=== PATIENT | female | born 1960 | race Caucasian/White ===

== ENCOUNTER 2021-04-17 08:59 | Emergency (ER) | payer OTHER ==
[~2021-04-17] VITALS: Ht 154.9 cm; Wt 85.5 kg
[~2021-04-17 08:59] MED LIST: ALLOPURINOL100 MG PO; AMLODIPINE BESYL5 MG PO; ATORVASTATIN CA10 MG PO; CLARITIN10 MG PO; COZAAR100 MG PO; FLUOXETINE HCL20 MG PO; IRON 100 PLUS1 EACH PO; LISINOPRIL-HCT1 EACH PO; MULTI VITAMIN1 EACH PO; NORCO 5-325 TA1 EACH PO; VITAMIN A AND1 EACH PO
[2021-04-17] MEDS ORDERED: TORSEMIDE20 MG PO (09:20)
[2021-04-17] MEDS ORDERED: CINACALCET HCL30 MG PO (09:21)
--- OUTSIDE RECORDS SUMMARY | 2021-04-17 11:00 | XMS ---
PreManage Notification: GEETA LONDON Security Camera Repairman Events No recent Security Events currently on file CRITERIA MET - [facility] - 3 Facilities in [address] [facility] - 2 Visits in 30 Days CARE PROVIDERS There are no care providers on record at this time. Larry has no Care Guidelines for this patient. Axel VISIT COUNT (12 MO.) 1 [facility] 1 [facility] 1 [facility] TOTAL 3 NOTE: Visits indicate total known visits. ED/[facility] VISIT TRACKING (12 MO.) 04/17/2021 09:00 [facility] [place] TYPE: Emergency COMPLAINT: - SOB/NAUSEA KIDNEY FAILURE 03/25/2021 14:11 [facility] [place] TYPE: Emergency DIAGNOSES: - Nausea - Chronic kidney disease, stage 4 (severe) - Abnormal Lab 03/14/2021 10:00 [facility] [place] TYPE: Emergency DIAGNOSES: - Pneumonia, unspecified organism - Shortness of Breath INPATIENT VISIT TRACKING (12 MO.) [facility] [place] [facility] DIAGNOSES: - Nausea - Acute kidney failure, unspecified - Anemia in chronic kidney disease - Hyperkalemia - Chronic kidney disease, stage 4 (severe) - Essential (primary) hypertension - Hyperlipidemia, unspecified - Chronic systolic (congestive) heart failure - 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
[2021-04-17] MEDS ORDERED: ONDANSETRON ODT8 MG PO (12:24)
--- NOTE | 2021-04-17 21:09 | EKG ---
[facility] [address] [place], [place] [address] Signed Sinus tachycardia Left axis deviation Left bundle branch block Abnormal ECG No previous ECGs available Confirmed by ANH MCBRIDE DO ([id number]) on 04/17/2021 9:09:47 PM Electronically Signed By: ANH MCBRIDE DO 04/17/212108 PATIENT NAME: GEETA LONDON RAFAEL Electrocardiogram DATE OF : 56 PHYSICIAN: ANH MCBRIDE DO REPORT #: [id number] REPORT IS CONFIDENTIAL AND NOT TO BE RELEASED WITHOUT AUTHORIZATION
== END 2021-04-17 12:42 | disposition home or self-care (01) ==
LOC: ED 08:59
DX: I13.0 Hypertensive heart and chronic kidney disease with heart failure and stage 1 through stage 4 chronic kidney disease, or unspecified chronic kidney disease (principal); N18.9 Chronic kidney disease, unspecified; I50.9 Heart failure, unspecified; E87.2 Acidosis; J45.909 Unspecified asthma, uncomplicated; Z88.2 Allergy status to sulfonamides; Z79.899 Other long term (current) drug therapy
CPT/HCPCS: 71045; 80053; 83880; 84484; 85025; 93005; 93010; 99285-25

== ENCOUNTER 2021-08-31 07:31 | Emergency (ER) | payer OTHER ==
[~2021-08-31] VITALS: Ht 154.9 cm; Wt 86.7 kg
[~2021-08-31 07:31] MED LIST changes: +CINACALCET HCL30 MG PO; +ONDANSETRON ODT8 MG PO; +TORSEMIDE20 MG PO
[2021-08-31] MEDS ORDERED: VITAMIN D3125 MC1 PO (07:47)
[2021-08-31] MEDS ORDERED: SODIUM BICARBO650 MG PO (07:47)
[2021-08-31] MEDS ORDERED: CARVEDILOL6.25 MG PO (07:48)
[2021-08-31] MEDS ORDERED: ISOSORBIDE DINI20 MG PO (07:48)
[2021-08-31] MEDS ORDERED: CIPRO250 MG PO (10:42)
== END 2021-08-31 11:21 | disposition home or self-care (01) ==
LOC: ED 07:31
DX: N39.0 Urinary tract infection, site not specified (principal); I10 Essential (primary) hypertension; J45.909 Unspecified asthma, uncomplicated; Z88.2 Allergy status to sulfonamides; Z79.899 Other long term (current) drug therapy
CPT/HCPCS: 51701; 81001; 87088; 87186; 99283; J0696

== ENCOUNTER 2023-10-02 17:16 | Emergency (ER) | payer MEDICARE, OTHER ==
[~2023-10-02] VITALS: Ht 154.9 cm; Wt 84.3 kg
[~2023-10-02 17:16] MED LIST changes: +CARVEDILOL6.25 MG PO; +CEFDINIR300 MG PO; +CINACALCET HCL60 MG PO; +CIPRO250 MG PO; +GLUCOSAMINE1000 MG PO; +HYDRALAZINE HC100 MG PO; +ISOSORBIDE DINI20 MG PO; +LOSARTAN POTASS50 MG PO; +NIFEDIPINE ER30 M1 PO; +OMEPRAZOLE20 MG PO; +RENVELA800 MG PO; +SODIUM BICARBO650 MG PO; +VITAMIN D3125 MC1 PO
[2023-10-02] MEDS ORDERED: PREDNISONE5 MG PO (17:37)
[2023-10-02] MEDS ORDERED: TACROLIMUS1 MG PO (17:41)
[2023-10-02] MEDS ORDERED: ASPIRIN81 MG PO (17:42)
[2023-10-02] MEDS ORDERED: NITROFURANTOIN100 M1 PO (17:46)
[2023-10-02 17:59] LABS: BASOPHILS 1.3 % (0-2); EOSINOPHILS 0.7 % (0-6); HEMATOCRIT 32.5 % (35.0-50.0); HEMOGLOBIN 10.5 g/dL (12.0-18.0); MCH 29.2 (27-36); MCHC 32.2 g/dl (30-36); MCV 90.7 fl (81-99); MONOCYTES 8.6 % (0-12); NEUTROPHILS 84.4 % (39-80); PLATELET COUNT 205 K/uL (140-440); RBC 3.59 M/ul (4.3-5.7); RDW 14.9 (10.5-15.0)
[2023-10-02 18:08] LABS: ALBUMIN 3.6 g/dL (3.4-5.0); ALBUMIN/GLOBULIN RATIO 1.24 (1.1-2.4); ANION GAP 14.9 (7-21); BILIRUBIN, TOTAL 0.4 ng/dL (0.2-1.0); BUN/CREATININE RATIO 15.46 (6.0-28.6); CALCIUM 10.1 mg/dL (8.5-10.1); CREATININE, SERUM 1.81 mg/dL (0.55-1.02); POTASSIUM 4.9 mmol/L (3.5-5.1); PROTEIN, TOTAL 6.5 g/dL (6.4-8.2)
[2023-10-02 18:30] LABS: LACTIC ACID, BLOOD 0.8 mmol/L (0.4-2.0)
[2023-10-02 18:44] LABS: BILIRUBIN, URINE NEGATIVE (negative); BLOOD/HGB, URINE NEGATIVE (Negative); KETONE, URINE NEGATIVE (Negative); LEUK ESTERASE, URINE NEGATIVE (negative); NITRITE, URINE NEGATIVE (negative); PH, URINE 5.5 (5-7)
[2023-10-02 18:46] LABS: INFLUENZA B NAA NEGATIVE (NEGATIVE); RESPIRATORY SYNCYTIAL VIR NAA NEGATIVE (NEGATIVE)
[2023-10-02 18:53] LABS: BACTERIA, URINE NONE SEEN /hpf (negative); CASTS, URINE GRANULAR 1+ \\lpf; COLLECTION TYPE, URINE CLEAN CATCH; CRYSTALS, URINE NONE SEEN (0-1+); EPITHELIAL CELLS, URINE NONE SEEN /lpf (0-1+); RED BLOOD CELLS, URINE 0-1 /hpf (0-5); REFLEX CULTURE, URINE No (No)
[2023-10-03 00:26] VITALS: BP 139/89
== END 2023-10-02 23:50 | disposition short-term general hospital (02) ==
LOC: ED 17:16
PROVIDERS: Emergency Medicine
DX: K52.9 Noninfective gastroenteritis and colitis, unspecified (principal); I10 Essential (primary) hypertension; Z94.0 Kidney transplant status; J45.909 Unspecified asthma, uncomplicated; Z88.2 Allergy status to sulfonamides; Z79.52 Long term (current) use of systemic steroids; Z79.621 Long term (current) use of calcineurin inhibitor; Z79.82 Long term (current) use of aspirin; D72.829 Elevated white blood cell count, unspecified
CPT/HCPCS: 36415; 71045; 74176; 80053; 81001; 83605; 85025; 87502; J0696; J3370; J7030; J7060; U0002

== ENCOUNTER 2025-06-22 10:52 | Day surgery (SDC) | payer MEDICARE, OTHER ==
[~2025-06-22] VITALS: Ht 152.4 cm; Wt 86.0 kg
[~2025-06-22 10:52] MED LIST changes: +ACETAMINOPHEN500 MG PO; +ASPIRIN81 MG PO; +CEFAZOLIN SODIUM 2 GM/20 ML SYR IV SCH; +CEFUROXIME250 MG PO; +COZAAR25 MG PO; +GABAPENTIN300 MG PO; +HYDROMORPHONE HC2 MG PO; +IBLOOD GLUCOSE TEST STRIP 1 EA TEST VI PRN; +LACTATED RINGER'S 1,000 ML IV SCH; +LIDOCAINE HCL 1% 5 ML SDV INJ ONE; +NITROFURANTOIN100 M1 PO; +NORVASC2.5 MG PO; +PREDNISONE5 MG PO; +SENNA LAX8.6 MG PO; +TACROLIMUS1 MG PO; +XARELTO10 MG PO
[2025-06-22 11:10] VITALS: BP 167/88
[2025-06-22] MEDS ORDERED: CLINDAMYCIN HC300 MG PO (11:20)
[2025-06-22] MEDS ORDERED: LIDOCAINE HCL 2% 20 MG/ML VIAL INJ ONE (12:13)
[2025-06-22] MEDS ORDERED: Ropivacaine HCl 0.5% 30 ML VIAL ONE (12:13)
[2025-06-22] MEDS ORDERED: DEXAMETHASONE SOD PHOS 10 MG/ML VIAL ONE (12:16)
[2025-06-22] MEDS ORDERED: HYDROCODONE/ACETA 7.5/325 TAB PO PRN (13:00)
[2025-06-22] MEDS ORDERED: fentaNYL citrate 100 MCG/2 ML VIAL ONE (13:29)
[2025-06-22] MEDS ORDERED: METOCLOPRAMIDE HCL 10 MG/2 ML SDV IV PRN (13:45)
[2025-06-22] MEDS ORDERED: fentaNYL citrate 50 MCG/ML SDV IV PRN (13:45)
[2025-06-22] MEDS ORDERED: IBLOOD GLUCOSE TEST STRIP 1 EA TEST VI PRN (13:45)
[2025-06-22] MEDS ORDERED: HYDROmorphone HCL 1 MG/ML SYR IV PRN (13:45)
[2025-06-22] MEDS ORDERED: NALOXONE HCL 0.4 MG SYR IV PRN (13:45)
--- NOTE | 2025-06-22 14:26 | NUR ---
06/22/25 1426 Juli Stroud PATIENT FOLLOWS INSTRUCTIONS TO LIFT HER HEAD OFF PILLOW. SURGICAL BONNET AND OXYGEN MASK ARE REMOVED.
[2025-06-22 14:57] VITALS: BP 152/118
--- NOTE | 2025-06-29 08:03 | OR ---
[facility] [address] [place], [place] [address] Signed DATE OF OPERATION: 06/22/2025 SURGEON: Galileo Johns MD PREOPERATIVE DIAGNOSIS: Distal radius fracture right. POSTOPERATIVE DIAGNOSIS: Distal radius fracture right. PROCEDURE PERFORMED: Open reduction and internal fixation right distal radius. GLASS CLEANING MACHINE TENDER: None. ANESTHESIA: General. BLOOD LOSS: None. TOURNIQUET TIME: 34 minutes. IMPLANTS: Trav DVR plate with seven screws. BRIEF HISTORY: Diamond is a 64-year-old female, who suffered a ground level fall with significant displacement. The risks, benefits, and alternatives of surgery were discussed with the patient. She understood and wished to proceed. DESCRIPTION OF PROCEDURE: Once consent was obtained, she was taken to the operating room. After adequate anesthesia, she was placed in well-padded proximal arm tourniquet. The area was prepped and draped in a standard sterile fashion, exsanguinated using Esmarch bandage and tourniquet inflated to 250 mmHg. Standard volar approach was taken through skin and subcutaneous tissue. The FCR was identified, retracted, and protected. Floor of the FCR sheath was incised and blunt dissection was taken down to the pronator. The Electronically Signed By: GALILEO JOHNS MD 06/29/25 0803 PATIENT NAME: DIAMOND LONDON [facility] OPERATIVE REPORT DATE OF : 56 REPORT #: [id number] PHYSICIAN: GALILEO JOHNS MD PCP: TJ MARCIAL MD REPORT IS CONFIDENTIAL AND NOT TO BE RELEASED WITHOUT AUTHORIZATION [facility] [address] [facility] [place] [address] Signed pronator was split and elevated medially and laterally. This allowed visualization of the fracture. Her bone was quite soft. We reduced the fracture and placed a K-wire from the radial styloid proximally engaging the body of the radius. Adequate reduction was obtained. The plate was then centered on the distal radius and aligned with the articular margin. It was then held with the central screw. The central distal screw was then placed under again image intensifier guidance. The first screw was placed in a nonlocking fashion. The two radial styloid screws were placed using locking screws. The ulnar screws were placed using locking screws. Two more screws placed in the proximal end of the plate. The final radiograph showed good reduction, screw lengths, and plate placement. The wound was copiously irrigated with normal saline. The pronator was closed back over the plate using 3-0 Monocryl. The FCR sheath was closed using 3-0 Monocryl as was the subcutaneous tissue. The skin was closed with 3-0 Stratafix. The wound was then sealed with LiquiBand and Steri-Strips. There was a small abrasion proximally that was covered with a Medihoney dressing. The incision was covered with Allevyn dressing and sterile cast padding. She was placed in a radial gutter splint. She tolerated the procedure well. All sponge, needle, and instrument counts were correct. Galileo Johns MD BA/DIONTEL /[id number] Copies: ~ Electronically Signed By: GALILEO JOHNS MD 06/29/25 0803 PATIENT NAME: DIAMOND LONDON RAFAEL OPERATIVE REPORT DATE OF : 56 REPORT #: [id number] PHYSICIAN: GALILEO JOHNS MD PCP: TJ MARCIAL MD REPORT IS CONFIDENTIAL AND NOT TO BE RELEASED WITHOUT AUTHORIZATION
== END 2025-06-22 15:06 | disposition home or self-care (01) ==
LOC: DS 10:52
PROVIDERS: ATTEND Specialist
PROC: 0PSH04Z Reposition Right Radius with Internal Fixation Device, Open Approach (ICD-10-PCS; principal; 2025-06-22 14:00)
DX: S52.571A Other intraarticular fracture of lower end of right radius, initial encounter for closed fracture (principal); S82.62XA Displaced fracture of lateral malleolus of left fibula, initial encounter for closed fracture; G89.18 Other acute postprocedural pain; I11.0 Hypertensive heart disease with heart failure; I50.9 Heart failure, unspecified; E78.00 Pure hypercholesterolemia, unspecified; J45.909 Unspecified asthma, uncomplicated; G47.30 Sleep apnea, unspecified; Z94.0 Kidney transplant status; Z79.82 Long term (current) use of aspirin; Z79.899 Other long term (current) drug therapy; Z88.2 Allergy status to sulfonamides; Z88.6 Allergy status to analgesic agent; W18.30XA Fall on same level, unspecified, initial encounter
CPT/HCPCS: 01830; 64417; 73100; C1713; J0690; J1100; J2405; J2704; J2795; J3010; J7121